=== PATIENT | male | born 1990 | race African-American/Black ===

== ENCOUNTER 2019-12-29 09:45 | Emergency (ER) | payer MEDICAID, OTHER ==
[~2019-12-29] VITALS: Ht 190.5 cm; Wt 136.1 kg
[2019-12-29 10:02] VITALS: BP 131/80
[2019-12-29 10:40] LABS: Urine Bacteria FEW /hpf (None Seen); Urine Blood Negative /uL (Negative); Urine Specific Gravity 1.021 (1.001-1.035); Urine WBC <1 /hpf (0 - 3)
== END 2019-12-29 10:37 | disposition home or self-care (01) ==
LOC: ER 09:45
DX: B00.9 Herpesviral infection, unspecified (principal)
CPT/HCPCS: 81001